=== PATIENT | female | born 1945 | race Two or more races ===

== ENCOUNTER 2019-07-25 13:40 | Emergency (ER) | payer OTHER ==
[~2019-07-25] VITALS: Ht 165.1 cm; Wt 89.8 kg
[2019-07-25 13:43] VITALS: BP 136/88
--- NOTE | 2019-07-25 13:43 | NUR ---
PT [id number], FROM HOME, C/O R SHOULDER, ELBOW AND HAND PAIN S/P SLIPPED AND FALL IN THE BATHROOM, -KO, PT IS AAOX3 LITHUANIAN SPEAKING ONLY, NOT IN RESPIRATORY DISTRESS, HOOKED TO MONITOR, KEPT RESTED AND COMFORTABLE, WILL CONTINUE TO MONITOR.
--- NOTE | 2019-07-25 13:50 | NUR ---
SEEN AND EXAMINED BY
[2019-07-25] MEDS ORDERED: HYDROCODONE/APAP 5/325MG 1 EACH TABLET ONE (13:57)
[2019-07-25] MEDS ORDERED: HYDROCODONE/APAP 5/325MG 1 EACH TABLET PO ONE (14:00)
--- NOTE | 2019-07-25 14:00 | NUR ---
[facility] CALLER AT BEDSIDE FOR XRAY.
--- NOTE | 2019-07-25 14:48 | NUR ---
Patient discharged to home in stable condition. Written and verbal after care instructions given. Patient verbalizes understanding of instruction.
== END 2019-07-25 14:49 | disposition home or self-care (01) ==
LOC: ER 13:42
DX: S42.291A Other displaced fracture of upper end of right humerus, initial encounter for closed fracture (principal); W01.198A Fall on same level from slipping, tripping and stumbling with subsequent striking against other object, initial encounter; Y93.9 Activity, unspecified; Y92.002 Bathroom of unspecified non-institutional (private) residence as the place of occurrence of the external cause; Y99.8 Other external cause status; I10 Essential (primary) hypertension; F32.9 Major depressive disorder, single episode, unspecified; E11.9 Type 2 diabetes mellitus without complications
CPT/HCPCS: 73030-TC; 73060-TC; 73080-TC; 73110